=== PATIENT | female | born 1940 | race Caucasian/White ===

== ENCOUNTER 2017-12-04 06:23 | Day surgery (SDC) | payer MEDICARE, BC ==
[~2017-12-04] VITALS: Ht 170.2 cm; Wt 125.0 kg
[~2017-12-04 06:23] MED LIST: ATOR20TA PO; LISI10TA4 PO
[2017-12-04] MEDS ORDERED: ASPI-611 PO (06:36)
[2017-12-04] MEDS ORDERED: fentaNYL/PF 50MCG/1 ML 2ML syringe ONE ×2 (06:48→08:25)
[2017-12-04] MEDS ORDERED: MIDAZolam 5mg/5ml vial ONE ×2 (06:48→08:25)
[2017-12-04 07:02] VITALS: BP 152/76
[2017-12-04 09:13] VITALS: BP 152/76
[2017-12-04 09:23] VITALS: BP 120/61
[2017-12-04 09:33] VITALS: BP 129/56
[2017-12-04 09:43] VITALS: BP 130/59
== END 2017-12-04 10:25 | disposition home or self-care (01) ==
LOC: GI LAB 06:23
PROVIDERS: ATTEND Internal Medicine Gastroenterology
DX: Z12.11 Encounter for screening for malignant neoplasm of colon (principal); D12.0 Benign neoplasm of cecum; K63.5 Polyp of colon; K57.30 Diverticulosis of large intestine without perforation or abscess without bleeding; E78.5 Hyperlipidemia, unspecified; Z86.010 Personal history of colon polyps; Z90.710 Acquired absence of both cervix and uterus; Z85.820 Personal history of malignant melanoma of skin; Z79.82 Long term (current) use of aspirin; Z98.890 Other specified postprocedural states; Z79.899 Other long term (current) drug therapy
CPT/HCPCS: 45380; 45385; 99153; G0500; J2250; J3010; J7030; 88305; 99152; A4620